=== PATIENT | female | born 1960 | race Caucasian/White ===

== ENCOUNTER 2024-01-21 11:41 | Emergency (ER) | payer SELFPAY ==
[2024-01-21 11:53] VITALS: BP 178/75; PULSE 70; RESP 18; TEMP 97.5; BMI 26.4
[2024-01-21] MEDS ORDERED: ACETAMINOPHEN 500 MG TABLET (FP) ONE (12:44)
[2024-01-21] MEDS ORDERED: IBUPROFEN 600 MG TABLET (FP) PO ONE (12:44)
[2024-01-21] MEDS ORDERED: LIDOCAINE 4% PATCH TP ONE (12:47)
[2024-01-21] MEDS: LIDOCAINE 4% PATCH TP ONE (12:55)
[2024-01-21] MEDS: ACETAMINOPHEN 500 MG TABLET (FP) PO ONE (12:56)
[2024-01-21] MEDS: IBUPROFEN 600 MG TABLET (FP) PO ONE (12:56)
[2024-01-21] MEDS ORDERED: ACETAMINOPHEN 500 MG TABLET (FP) PO ONE (14:52)
[2024-01-21] MEDS ORDERED: LIDOCAINE PATCH REMOVAL MC SCH (22:00)
== END 2024-01-21 14:08 | disposition home or self-care (01) ==
LOC: JERFT 11:41
DX: M25.562 Pain in left knee (principal); M54.2 Cervicalgia; W01.198A Fall on same level from slipping, tripping and stumbling with subsequent striking against other object, initial encounter; Y92.512 Supermarket, store or market as the place of occurrence of the external cause
CPT/HCPCS: 73562-TC-LT-FY; 99283-25